=== PATIENT | male | born 2000 | race Two or more races ===

== ENCOUNTER 2018-03-31 21:48 | Emergency (ER) | payer MEDICAID ==
[~2018-03-31] VITALS: Ht 180.3 cm; Wt 99.8 kg
[2018-03-31 21:53] VITALS: BP 149/100
[2018-04-01] MEDS ORDERED: HYDROcodone-ACET 7.5/325MG TAB PO ONE (02:30)
== END 2018-04-01 03:15 | disposition home or self-care (01) ==
LOC: ER 21:48
DX: S43.422A Sprain of left rotator cuff capsule, initial encounter (principal); J45.909 Unspecified asthma, uncomplicated; X58.XXXA Exposure to other specified factors, initial encounter; Y93.89 Activity, other specified; Y99.8 Other external cause status; Y92.39 Other specified sports and athletic area as the place of occurrence of the external cause
CPT/HCPCS: 73030

== ENCOUNTER 2021-02-17 08:16 | Emergency (ER) | payer MEDICAID ==
[~2021-02-17] VITALS: Ht 180.3 cm; Wt 102.1 kg
[2021-02-17 08:22] VITALS: BP 122/71
[2021-02-17] MEDS ORDERED: ACETAMINOPHEN 325 MG TAB PO ONE (08:45)
== END 2021-02-17 10:34 | disposition home or self-care (01) ==
LOC: ER 08:16
DX: S30.0XXA Contusion of lower back and pelvis, initial encounter (principal); S30.1XXA Contusion of abdominal wall, initial encounter; F17.210 Nicotine dependence, cigarettes, uncomplicated; J45.909 Unspecified asthma, uncomplicated; W01.0XXA Fall on same level from slipping, tripping and stumbling without subsequent striking against object, initial encounter; Y93.89 Activity, other specified; Y92.89 Other specified places as the place of occurrence of the external cause; Y99.8 Other external cause status
CPT/HCPCS: 72131; 74176

== ENCOUNTER 2021-03-22 15:30 | Emergency (ER) | payer MEDICAID ==
[~2021-03-22] VITALS: Ht 180.3 cm; Wt 104.3 kg
[2021-03-22 16:46] VITALS: BP 153/79
== END 2021-03-22 17:04 | disposition home or self-care (01) ==
LOC: ER 15:31
DX: S16.1XXA Strain of muscle, fascia and tendon at neck level, initial encounter (principal); J45.909 Unspecified asthma, uncomplicated; Z87.891 Personal history of nicotine dependence; V43.52XA Car driver injured in collision with other type car in traffic accident, initial encounter; Y93.89 Activity, other specified; Y92.410 Unspecified street and highway as the place of occurrence of the external cause; Y99.8 Other external cause status
CPT/HCPCS: 72040

== ENCOUNTER 2021-06-25 07:14 | Emergency (ER) | payer MEDICAID ==
[~2021-06-25] VITALS: Ht 180.3 cm; Wt 104.3 kg
[2021-06-25 07:21] VITALS: BP 149/98
[2021-06-25] MEDS ORDERED: CEPH500T PO (07:42)
== END 2021-06-25 08:08 | disposition home or self-care (01) ==
LOC: ER 07:14
DX: L01.00 Impetigo, unspecified (principal); F17.210 Nicotine dependence, cigarettes, uncomplicated; F12.10 Cannabis abuse, uncomplicated

== ENCOUNTER 2021-07-06 23:21 | Emergency (ER) | payer MEDICAID ==
[~2021-07-06] VITALS: Ht 180.3 cm; Wt 104.3 kg
[~2021-07-06 23:21] MED LIST: CEPH500T PO
[2021-07-06 23:22] VITALS: BP 143/80
[2021-07-07] MEDS ORDERED: MUPI2CRE17 EXT (08:04)
[2021-07-07] MEDS ORDERED: CLIN300C8 PO (08:04)
[2021-07-07] MEDS ORDERED: PRED20TA2 PO (08:24)
== END 2021-07-07 02:36 | disposition left against medical advice (07) ==
LOC: ER 23:21
DX: R21 Rash and other nonspecific skin eruption (principal); Z53.21 Procedure and treatment not carried out due to patient leaving prior to being seen by health care provider

== ENCOUNTER 2021-07-07 04:32 | Emergency (ER) | payer MEDICAID ==
[~2021-07-07] VITALS: Ht 180.3 cm; Wt 104.3 kg
[2021-07-07 07:48] VITALS: BP 126/60
[2021-07-07] MEDS ORDERED: methylPREDNISolone SOD SUCC 125 MG/2 ML VL IM ONE (08:00)
[2021-07-07] MEDS ORDERED: cefTRIAXone SOD 1,000 MG VL IM ONE (08:00)
[2021-07-07] MEDS ORDERED: CLIN300C8 PO (08:04)
[2021-07-07] MEDS ORDERED: MUPI2CRE17 EXT (08:04)
[2021-07-07] MEDS ORDERED: PRED20TA2 PO (08:24)
== END 2021-07-07 08:34 | disposition home or self-care (01) ==
LOC: ER 04:32
DX: L01.00 Impetigo, unspecified (principal); J45.909 Unspecified asthma, uncomplicated; F17.210 Nicotine dependence, cigarettes, uncomplicated; Z79.2 Long term (current) use of antibiotics; Z79.899 Other long term (current) drug therapy
CPT/HCPCS: 96372; 99284; J0696; J2930

== ENCOUNTER 2022-12-15 11:20 | Emergency (ER) | payer MEDICAID ==
[~2022-12-15] VITALS: Ht 180.3 cm; Wt 99.4 kg
[2022-12-15 11:20] VITALS: BP 128/82; TEMP 97.4
[~2022-12-15 11:20] MED LIST changes: +CLIN300C70 PO; +MUPI2CRE17 EXT; +PRED20TA2 PO
[2022-12-15] MEDS ORDERED: ERY05OO OP (13:10)
[2022-12-15 13:30] VITALS: PULSE 76; RESP 16; O2SAT 96
== END 2022-12-15 13:42 | disposition home or self-care (01) ==
LOC: ER 11:20
DX: H10.89 Other conjunctivitis (principal); J45.909 Unspecified asthma, uncomplicated; F17.210 Nicotine dependence, cigarettes, uncomplicated; F15.90 Other stimulant use, unspecified, uncomplicated; Z79.899 Other long term (current) drug therapy